=== PATIENT | female | born 1980 | race Caucasian/White ===

== ENCOUNTER 2019-07-12 07:26 | Emergency (ER) | payer SELFPAY ==
[2019-07-12] MEDS ORDERED: NA CHLORIDE 0.9% 1,000 ML ONE (07:39)
[2019-07-12] MEDS ORDERED: ONDANSETRON 4 MG/2 ML VIAL ONE (07:39)
[2019-07-12] MEDS ORDERED: MORPHINE 4 MG/ML SYR ONE (07:39)
[2019-07-12 08:06] LABS: Absolute Lymphocytes (CBC) 1.5 K/uL (0.7-4.9); Basophils % 0.8 % (0-1.3); Hematocrit 36.3 % (36.0-45.0); Lymphocytes % 20.9 % (15.3-44.8); MPV 8.4 fL (7.6-11.3); RBC Red Blood Cell Count 3.97 M/uL (3.86-4.86)
[2019-07-12 08:21] LABS: ALT/SGPT 31 U/L (12-78); AST/SGOT 22 U/L (15-37); Albumin 4.2 g/dL (3.4-5.0); Alkaline Phosphatase 62 U/L (45-117); BUN Blood Urea Nitrogen 25 mg/dL (7-18); Bicarbonate 29 mmol/L (21-32); Bilirubin Direct < 0.1 mg/dL (0-0.2); Bilirubin Total 0.2 mg/dL (0.2-1.0); Glucose Level 97 mg/dL (74-106); Lipase 203 U/L (73-393); Potassium 4.2 mmol/L (3.5-5.1); Protein, Total 7.5 g/dL (6.4-8.2); Sodium Level 138 mmol/L (136-145)
[2019-07-12 09:22] LABS: Urine Blood TRACE (NEG); Urine Glucose NEGATIVE (NEG); Urine Protein NEGATIVE (NEG); Urine Specific Gravity 1.025 (1.005-1.030); Urine pH 5.5 (5.0-7.0)
--- NOTE | 2019-07-12 09:41 | RAD REPORT ---
EXAM DESCRIPTION: CTAbdomen Pelvis W Contrast - 07/12/2019 9:29 am CLINICAL HISTORY: Abdominal pain. ABD PAIN COMPARISON: Abdomen Exam Limited dated 07/12/2019 TECHNIQUE: Biphasic CT imaging of the abdomen and pelvis was performed with 100 ml non-ionic IV cont rast. All CT scans are performed using dose optimization technique as appropriate and may include automated exposure control or mA/KV adjustment according to patient size. FINDINGS: The lung bases are clear. Small fundal diverticulum of the stomach. The liver, spleen, pancreas, adrenal glands and kidneys are within normal limits. Benign cysts presen t inferior cortex right kidney. No bowel obstruction, free air, free fluid or abscess. A significant amount of stool is retained in t he colon. The appendix is normal. Small fat containing supraumbilical ventral hernia. Hernia sac antwon ures 3.5 x 2.9 cm. No bowel involvement. No evidence of significant lymphadenopathy. No suspicious bony findings. Small fat containing right inguinal hernia. IMPRESSION: Prominent fecal retention in the colon. 3.5 x 2.9 cm supraumbilical fat containing ventral hernia. Small fat containing right inguinal hernia.
--- NOTE | 2019-07-12 09:44 | RAD REPORT ---
EXAM DESCRIPTION: US - Abdomen Exam Limited - 07/12/2019 8:21 am CLINICAL HISTORY: ABD PAIN COMPARISON: No comparisons FINDINGS: The gallbladder demonstrates no gallstones. No pericholecystic fluid or gallbladder wall t hickening. The common bile duct is normal measuring 3 mm. The liver demonstrates no findings of intrahepatic biliary dilatation. IMPRESSION: Unremarkable examination.
--- NOTE | 2019-07-12 10:22 | ER ---
Nurse's Notes [facility] Name: Priyanka Bravo Age: 39 yrs Sex: Female : 1980 Arrival Date: 07/12/2019 Time: 07:28 Bed 20 Private MD: None, None Diagnosis: Constipation;Ventral hernia;Upper abdominal pain, unspecified Presentation: 07/12 07:31 Presenting complaint: Patient states: this morning i was up taking the dogs out having tw2 a cigarette, and my stomach just started hurting about 430 this morning, its all over, i took some gas x it didn't help, i did have a bm but that didn't help. Transition of care: patient was received from another setting of care (hospital). Onset of symptoms was July 12, 2019. Risk Assessment: Do you want to hurt yourself or someone else? Patient reports no desire to harm self or others. Initial Sepsis Screen: Does the patient meet any 2 criteria? No. Patient's initial sepsis screen is negative. Does the patient have a suspected source of infection? No. Patient's initial sepsis screen is negative. Care prior to arrival: None. 07:31 Method Of Arrival: Ambulatory tw2 07:31 Acuity: SHAZIA 3 tw2 Triage Assessment: 07:52 General: Appears uncomfortable, Behavior is calm, cooperative, appropriate for age. tw2 Pain: Complains of pain in abdomen. GI: Reports lower abdominal pain, upper abdominal pain, cramping, nausea. 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 - Social history:: Smoking status: Patient uses tobacco products, smokes one pack cigarettes per day. 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 - Ebola Screening: : Patient denies travel to an Ebola-affected area in the 21 days before illness onset. Screenin:57 Abuse screen: Denies threats or abuse. Nutritional screening: No deficits noted. tw2 Tuberculosis screening: No symptoms or risk factors identified. Fall Risk None identified. Assessment: 07:57 General: Appears uncomfortable, Behavior is cooperative, appropriate for age. Pain: tw2 Complains of pain in abdomen. Neuro: Level of Consciousness is awake, alert, obeys commands, Oriented to person, place, time, situation. Cardiovascular: Heart tones S1 S2 Patient's skin is warm and dry. Respiratory: Airway is patent Respiratory effort is even, unlabored, Respiratory pattern is regular, symmetrical, Breath sounds are clear bilaterally. GI: Abdomen is flat, Bowel sounds present X 4 quads. Abd is soft X 4 quads Abdomen is tender to palpation in right upper quadrant and right lower quadrant. : No signs and/or symptoms were reported regarding the genitourinary system. EENT: Derm: No signs and/or symptoms reported regarding the dermatologic system. Musculoskeletal: Range of motion: intact in all extremities. 08:04 Reassessment: US at bedside at this time. tw2 08:50 Reassessment: Patient appears in no apparent distress at this time. No changes from tw2 previously documented assessment. Patient and/or family updated on plan of care and expected duration. Pain level reassessed. Patient is alert, oriented x 3, equal unlabored respirations, skin warm/dry/pink. Patient states feeling better. Patient states symptoms have improved. 09:44 Reassessment: Patient appears in no apparent distress at this time. No changes from tw2 previously documented assessment. Patient and/or family updated on plan of care and expected duration. Pain level reassessed. Patient is alert, oriented x 3, equal unlabored respirations, skin warm/dry/pink. Patient states feeling better. Patient states symptoms have improved. 10:19 Reassessment: provider at bedside with results at this time. tw2 10:36 Reassessment: Patient appears in no apparent distress at this time. No changes from tw2 previously documented assessment. Patient and/or family updated on plan of care and expected duration. Pain level reassessed. Patient is alert, oriented x 3, equal unlabored respirations, skin warm/dry/pink. Patient states feeling better. Patient states symptoms have improved. Vital Signs: 07:53 BP 136 / 88; Pulse 87; Resp 19; Temp 97.6(TE); Pulse Ox 99% on R/A; Weight 74.84 kg tw2 (R); Height 5 ft. 5 in. (165.10 cm); Pain 8/10; 08:50 BP 105 / 66; Pulse 60; Resp 17; Pulse Ox 100% ; Pain 6/10; tw2 09:44 BP 115 / 81; Pulse 57; Resp 17; Pulse Ox 98% on R/A; tw2 07:53 Body Mass Index 27.46 (74.84 kg, 165.10 cm) tw2 ED Course: 07:28 Patient arrived in ED. mr 07:28 None, None is Private Physician. mr 07:29 Marie yAala, [facility]. kb 07:29 Apollo Fregoso MD is Attending Physician. kb 07:31 Bed in low position. Call light in reach. tw2 07:36 Beverly Harman, RN is Primary Nurse. tw2 07:36 Michael Alvarado MD is Attending Physician. kb 07:52 Triage completed. tw2 07:52 Arm band placed on. tw2 07:56 Initial lab(s) drawn, by me, sent to lab. Inserted saline lock: 20 gauge in left dh3 antecubital area, using aseptic technique. Blood collected. 07:56 Missed attempt(s): 22 gauge in right antecubital area. Bleeding controlled, band aid tw2 applied, catheter tip intact. Missed attempt(s): 22 gauge in left antecubital area. Bleeding controlled, band aid applied, catheter tip intact. 08:21 Ultrasound completed. Patient tolerated well. Notified EKG MONITOR TECH/PA . sg3 08:23 US Abdomen Limited In Process Unspecified. EDMS 08:23 Radiology exam delayed due to test not completed at this time. mw3 09:04 Radiology exam delayed due to test not completed at this time. mw3 09:18 Urine collected: clean catch specimen, cloudy. dh3 09:29 CT Abd/Pelvis - IV Contrast Only In Process Unspecified. EDMS 09:30 CT completed. Patient tolerated procedure well. Patient moved back from CT. mw3 10:35 No provider procedures requiring assistance completed. IV discontinued, intact, tw2 bleeding controlled, No redness/swelling at site. Pressure dressing applied. Administered Medications: 08:00 Drug: Zofran 4 mg Route: IVP; Site: left antecubital; tw2 09:00 Follow up: Response: No adverse reaction; Nausea is decreased tw2 08:00 Drug: NS 0.9% 1000 ml Route: IV; Rate: 1000 ml; Site: left antecubital; tw2 09:00 Follow up: Response: No adverse reaction; IV Status: Completed infusion; IV Intake: tw2 1000ml 08:02 Drug: morphine 4 mg Route: IVP; Site: left antecubital; tw2 10:37 Follow up: Response: No adverse reaction; Pain is decreased; RASS: Alert and Calm (0) tw2 Intake: 09:00 IV: 1000ml; Total: 1000ml. tw2 Outcome: 10:22 Discharge ordered by . hilda 10:36 Discharged to home ambulatory. tw2 10:36 Condition: stable 10:36 Discharge instructions given to patient, Instructed on discharge instructions, follow up and referral plans. medication usage, Demonstrated understanding of instructions, follow-up care, medications, Prescriptions given X 2. 10:38 Patient left the ED. tw2 Signatures: Dispatcher [employer] EDMS Marie Ayala, ROSE GILLETTEP-Elo Sommer Tara, RN RN tw2 Krystal Mike3 [place] 3 Angella Paige mw3
--- NOTE | 2019-07-12 10:23 | EDPHYS ---
Physician Documentation [facility] Name: Priyanka Bravo Age: 39 yrs Sex: Female : 1980 Arrival Date: 07/12/2019 Time: 07:28 Bed 20 Private MD: None, None ED Physician Michael Alvarado HPI: 07/12 08:07 This 39 yrs old Female presents to ER via Ambulatory with complaints of kb Abdominal Pain. 08:07 The patient presents with abdominal pain in the upper abdomen. Onset: The kb symptoms/episode began/occurred this morning, at 04:30. The symptoms do not radiate. Associated signs and symptoms: none. The symptoms are described as constant. Modifying factors: The symptoms are alleviated by nothing, the symptoms are aggravated by nothing. Severity of pain: At its worst the pain was moderate in the emergency department the pain is unchanged. The patient has experienced similar episodes in the past, several times, today's symptoms are similar. The patient has not recently seen a physician. 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 - Social history:: Smoking status: Patient uses tobacco products, smokes one pack cigarettes per day. 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 - Ebola Screening: : Patient denies travel to an Ebola-affected area in the 21 days before illness onset. ROS: 08:07 Constitutional: Negative for fever, chills, and weight loss, ENT: Negative for injury, kb pain, and discharge, Neck: Negative for injury, pain, and swelling, Cardiovascular: Negative for chest pain, palpitations, and edema, Respiratory: Negative for shortness of breath, cough, wheezing, and pleuritic chest pain, Back: Negative for injury and pain, : Negative for injury, bleeding, discharge, and swelling, MS/Extremity: Negative for injury and deformity, Skin: Negative for injury, rash, and discoloration, Neuro: Negative for headache, weakness, numbness, tingling, and seizure. 08:07 Abdomen/GI: Positive for abdominal pain, Negative for nausea, vomiting, and diarrhea. Exam: 08:06 Constitutional: This is a well developed, well nourished patient who is awake, alert, kb and in no acute distress. Head/Face: Normocephalic, atraumatic. ENT: Nares patent. No nasal discharge, no septal abnormalities noted. Tympanic membranes are normal and external auditory canals are clear. Oropharynx with no redness, swelling, or masses, exudates, or evidence of obstruction, uvula midline. Mucous membranes moist. Neck: Trachea midline, no thyromegaly or masses palpated, and no cervical lymphadenopathy. Supple, full range of motion without nuchal rigidity, or vertebral point tenderness. No Meningismus. Chest/axilla: Normal chest wall appearance and motion. Nontender with no deformity. No lesions are appreciated. Cardiovascular: Regular rate and rhythm with a normal S1 and S2. No gallops, murmurs, or rubs. Normal PMI, no JVD. No pulse deficits. Respiratory: Lungs have equal breath sounds bilaterally, clear to auscultation and percussion. No rales, rhonchi or wheezes noted. No increased work of breathing, no retractions or nasal flaring. Back: No spinal tenderness. No costovertebral tenderness. Full range of motion. Skin: Warm, dry with normal turgor. Normal color with no rashes, no lesions, and no evidence of cellulitis. MS/ Extremity: Pulses equal, no cyanosis. Neurovascular intact. Full, normal range of motion. Neuro: Awake and alert, GCS 15, oriented to person, place, time, and situation. Cranial nerves II-XII grossly intact. Motor strength 5/5 in all extremities. Sensory grossly intact. Cerebellar exam normal. Normal gait. 08:06 Abdomen/GI: Inspection: abdomen appears normal, Bowel sounds: normal, in all quadrants, Palpation: soft, in all quadrants, moderate abdominal tenderness, in all quadrants, Hernia: noted in the epigastric area, easily reducible . Vital Signs: 07:53 BP 136 / 88; Pulse 87; Resp 19; Temp 97.6(TE); Pulse Ox 99% on R/A; Weight 74.84 kg tw2 (R); Height 5 ft. 5 in. (165.10 cm); Pain 8/10; 08:50 BP 105 / 66; Pulse 60; Resp 17; Pulse Ox 100% ; Pain 6/10; tw2 09:44 BP 115 / 81; Pulse 57; Resp 17; Pulse Ox 98% on R/A; tw2 07:53 Body Mass Index 27.46 (74.84 kg, 165.10 cm) tw2 MDM: 07:29 Patient medically screened. kb 08:06 Data reviewed: vital signs, nurses notes. Data interpreted: Pulse oximetry: on room air kb is 99 %. Interpretation: normal. 10:21 Counseling: I had a detailed discussion with the patient and/or guardian regarding: the kb historical points, exam findings, and any diagnostic results supporting the discharge/admit diagnosis, lab results, radiology results, the need for outpatient follow up, a family practitioner, a general surgeon, a pot annealer, to return to the emergency department if symptoms worsen or persist or if there are any questions or concerns that arise at home. ED course: Educated to follow up with surgery for hernias. Also educated on follow up with GI for possible Hida scan. 07/12 07:35 Order name: Basic Metabolic Panel; Complete Time: 08:22 kb 07/12 07:35 Order name: CBC with Diff; Complete Time: 08:09 kb 07/12 07:35 Order name: Hepatic Function; Complete Time: 08:22 kb 07/12 07:35 Order name: Lipase; Complete Time: 08:22 kb 07/12 09:15 Order name: Urine Dipstick--Ancillary (enter results); Complete Time: 09:24 bd 07/12 09:15 Order name: Urine --Ancillary (enter results); Complete Time: 09:24 bd 07/12 07:35 Order name: IV Saline Lock; Complete Time: 08:01 kb 07/12 07:35 Order name: Labs collected and sent; Complete Time: 08:01 kb 07/12 07:35 Order name: US Abdomen Limited; Complete Time: 10:01 kb 07/12 08:14 Order name: CT Abd/Pelvis - IV Contrast Only; Complete Time: 10:01 kb 07/12 08:48 Order name: Urine Dipstick-Ancillary (obtain specimen); Complete Time: 09:18 bd 07/12 08:48 Order name: Urine Test (obtain specimen); Complete Time: 09:18 bd Administered Medications: 08:00 Drug: Zofran 4 mg Route: IVP; Site: left antecubital; tw2 09:00 Follow up: Response: No adverse reaction; Nausea is decreased tw2 08:00 Drug: NS 0.9% 1000 ml Route: IV; Rate: 1000 ml; Site: left antecubital; tw2 09:00 Follow up: Response: No adverse reaction; IV Status: Completed infusion; IV Intake: tw2 1000ml 08:02 Drug: morphine 4 mg Route: IVP; Site: left antecubital; tw2 10:37 Follow up: Response: No adverse reaction; Pain is decreased; RASS: Alert and Calm (0) tw2 Disposition: 15:28 Co-signature as Attending Physician, Michael Alvarado MD I agree with the assessment and kdr plan of care. Disposition: 07/12/19 10:22 Discharged to Home. Impression: Constipation, Ventral hernia, Upper abdominal pain, unspecified. - Condition is Stable. - Discharge Instructions: Biliary Colic, Adult, Constipation, Adult, [id number], Abdominal Pain, Adult, [id number]. - Prescriptions for Bentyl 20 mg Oral Tablet - take 1 tablet by ORAL route every 6 hours As needed; 20 tablet. Diclofenac Sodium 75 mg Oral Tablet, Delayed Release (E.C.) - take 1 tablet by ORAL route 2 times per day As needed; 30 tablet. - Medication Reconciliation Form, Thank You Letter, Antibiotic Education, Prescription Opioid Use form. - Follow up: Emergency Department; When: As needed; Reason: Worsening of condition. Follow up: Private Physician; When: 2 - 3 days; Reason: Recheck today's complaints, Continuance of care, Re-evaluation by your physician. Signatures: Dispatcher [employer] EDMS Marie Ayala, ROSE CANAS-Karen Smith Kevin, MD MD kdr Beverly Harman RN RN tw2 Corrections: (The following items were deleted from the chart) 10:38 10:22 07/12/2019 10:22 Discharged to Home. Impression: Constipation; Ventral hernia; tw2 Upper abdominal pain, unspecified. Condition is Stable. Forms are Medication Reconciliation Form, Thank You Letter, Antibiotic Education, Prescription Opioid Use. Follow up: Emergency Department; When: As needed; Reason: Worsening of condition. Follow up: Private Physician; When: 2 - 3 days; Reason: Recheck today's complaints, Continuance of care, Re-evaluation by your physician. kb
[2019-07-12 11:05] VITALS: TEMP 97.6
[2019-07-12 11:07] VITALS: BP 115/81; O2SAT 98
== END 2019-07-12 10:38 | disposition home or self-care (01) ==
LOC: ER 07:26
DX: K59.00 Constipation, unspecified (principal); K43.9 Ventral hernia without obstruction or gangrene; F17.210 Nicotine dependence, cigarettes, uncomplicated; E03.9 Hypothyroidism, unspecified; F32.9 Major depressive disorder, single episode, unspecified; F43.10 Post-traumatic stress disorder, unspecified; Z88.2 Allergy status to sulfonamides
CPT/HCPCS: 36415; 74177; 76705; 80048; 80076; 81003; 81025; 83690; 85025; 96361; 96374; 96375; 99284; J2405; J7030; Q9967

== ENCOUNTER 2019-10-26 14:14 | Emergency (ER) | payer SELFPAY ==
[2019-10-26] MEDS ORDERED: FAMOTIDINE 20 MG/2 ML VIAL IV ONE (14:41)
[2019-10-26] MEDS ORDERED: ONDANSETRON 4 MG/2 ML VIAL ONE (14:41)
[2019-10-26] MEDS ORDERED: NA CHLORIDE 0.9% 1,000 ML ONE (14:41)
[2019-10-26] MEDS ORDERED: MORPHINE 4 MG/ML SYR ONE (14:41)
--- NOTE | 2019-10-26 14:47 | RAD REPORT ---
EXAM DESCRIPTION: RAD - Chest Single View - 10/26/2019 2:40 pm CLINICAL HISTORY: ABDOMINAL DISTENTION COMPARISON: None TECHNIQUE: AP portable chest image was obtained 10/26/2019 2:40 pm . FINDINGS: Lungs are clear. Heart and vasculature are normal. No measurable pleural effusion and no p neumothorax. No acute bony abnormality seen. No acute aortic findings suspected. IMPRESSION: No acute cardiopulmonary process.
[2019-10-26 15:12] LABS: Absolute Lymphocytes (CBC) 1.6 K/uL (0.7-4.9); Hematocrit 36.6 % (36.0-45.0); Lymphocytes % 20.6 % (15.3-44.8); MPV 8.3 fL (7.6-11.3); RBC Red Blood Cell Count 4.07 M/uL (3.86-4.86)
[2019-10-26 15:40] LABS: ALT/SGPT 21 U/L (12-78); AST/SGOT 19 U/L (15-37); Albumin 3.9 g/dL (3.4-5.0); Alkaline Phosphatase 55 U/L (45-117); BUN Blood Urea Nitrogen 12 mg/dL (7-18); Bicarbonate 28 mmol/L (21-32); Bilirubin Direct < 0.1 mg/dL (0-0.2); Bilirubin Total 0.2 mg/dL (0.2-1.0); Glucose Level 94 mg/dL (74-106); Lipase 131 U/L (73-393); Magnesium 2.1 mg/dL (1.8-2.4); NT PRO-BNP 92 pg/mL (<125); Potassium 4.1 mmol/L (3.5-5.1); Protein, Total 7.2 g/dL (6.4-8.2); Sodium Level 143 mmol/L (136-145); Troponin (Emerg Dept Use Only) < 0.02 ng/mL (0.0-0.045)
[2019-10-26 15:47] LABS: Protime INR 0.93
[2019-10-26 16:12] LABS: Urine Blood 2+ (NEG); Urine Glucose NEGATIVE (NEG); Urine Protein NEGATIVE (NEG); Urine Specific Gravity 1.025 (1.005-1.030)
[2019-10-26 16:12] LABS: Urine Specific Gravity 1.025 (1.005-1.030)
--- NOTE | 2019-10-26 16:47 | EKG ---
Test Date: 2019-10-26 Test Time: 14:36:09 Instructor Military Science: SIXTO MEASUREMENT RESULTS: Intervals: Rate: 64 IN: 136 QRSD: 92 QT: 408 QTc: 420 [place]: P: 56 IN: 136 QRS: 93 T: 50 INTERPRETIVE STATEMENTS: Normal sinus rhythm Rightward axis Borderline ECG No previous ECG available for comparison Electronically Signed On 10-26-19 16:47:06 CDT by Richard Hopkins
--- NOTE | 2019-10-26 17:16 | RAD REPORT ---
EXAM DESCRIPTION: CT - Abdomen Pelvis W Contrast - 10/26/2019 4:59 pm CLINICAL HISTORY: ABD PAIN COMPARISON: Abdomen Pelvis W Contrast dated 07/12/2019 TECHNIQUE: Biphasic, helical CT imaging of the abdomen and pelvis was performed following 100 ml non -ionic IV contrast. Oral contrast was administered. . All CT scans are performed using dose optimization technique as appropriate and may include automated exposure control or mA/KV adjustment according to patient size. FINDINGS: Minimal bilateral pleural effusions. There is minimal interstitial and patchy alveolar opa cities in each posterior gutter. The liver, spleen, and pancreas show no suspicious findings. Gallbladder and biliary tree are also wi thout suspicious finding. Symmetric renal function is seen with no hydronephrosis or suspicious renal mass. No pyelonephritis o r acute parenchymal process. No bladder abnormalities. No adrenal abnormalities. Uterus and ovaries s how no suspicious findings. Little or no hiatal hernia is evident on this examination. Stomach shows no wall thickening, mass or other acute finding. No dilated large or small bowel loops seen. Appendix is normal. Physiologic quantity of free fluid seen in the cul de sac. No free air or pneumatosis. No mass or bulky lymphadenopathy. Midline ventral hernia in the upper abdomen is approximately 8 cm i n diameter with a 3 centimeter neck. There is no bowel involvement. The herniated fat shows a trace a mount of congestion or edema. Pattern is not substantially different from June 2019. Patient also has a midline supraumbilical hernia 5 cm in diameter with a 2.5 centimeter neck. This contains only fat. A fat only 2.5 centimeter umbilical hernia is present. The supraumbilical hernia has a trace jaclyn unt of fluid present. No suspicious bony findings. IMPRESSION: The patient has 3 midline ventral hernias. The superior abdominal hernia and umbilical h ernia are not substantially different from June 2019. The supraumbilical hernia contains a trace amount of fluid. There is no bowel involvement of any hernia. No significant congestion or edema within the herniated fat. Trace bilateral pleural effusions with minimal amount of bilateral posterior lung base interstitial e janell and minimal atelectasis.
--- NOTE | 2019-10-26 17:34 | ER ---
Nurse's Notes [facility] Name: Priyanka Bravo Age: 39 yrs Sex: Female : 1980 Arrival Date: 10/26/2019 Time: 14:15 Bed 28 Private MD: Diagnosis: Ventral hernia;Abdominal tenderness;Vomiting Presentation: 10/25 14:18 Chief complaint: Patient states: "I was here on the for the same thing, I have a aa5 hernia but the pain is too bad today". pt c/o abd pain. Coronavirus screen: Proceed with normal triage. Ebola Screen: Patient negative for fever greater than or equal to 101.5 degrees Fahrenheit, and additional compatible Ebola Virus Disease symptoms. Initial Sepsis Screen: Does the patient meet any 2 criteria? No. Patient's initial sepsis screen is negative. Does the patient have a suspected source of infection? No. Patient's initial sepsis screen is negative. Risk Assessment: Do you want to hurt yourself or someone else? Patient reports no desire to harm self or others. Onset of symptoms was October 2019. 14:18 Method Of Arrival: Ambulatory aa5 14:18 Acuity: SHAZIA 3 aa5 Triage Assessment: 14:30 General: Appears in no apparent distress. uncomfortable, Behavior is calm, cooperative, vc appropriate for age. Pain: Complains of pain in left upper quadrant and right upper quadrant Pain does not radiate. Pain currently is 7 out of 10 on a pain scale. at worst was 11 out of 10 on a pain scale. GI: Abdomen is distended, obese, Reports upper abdominal pain, nausea, vomiting. 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 - Social history:: Smoking status: Patient reports the use of cigarette tobacco products, smokes one-half pack cigarettes per day. - Family history:: not pertinent. Screenin:30 Abuse screen: Denies threats or abuse. Nutritional screening: No deficits noted. vc Tuberculosis screening: No symptoms or risk factors identified. Fall Risk None identified. Assessment: 14:30 Pain: Complains of pain in left upper quadrant and right upper quadrant. GI: Bowel vc sounds present X 4 quads. Abdomen is tender to palpation Mass noted in right upper quadrant and left upper quadrant. 14:30 General: Appears in no apparent distress. uncomfortable, Behavior is calm, cooperative, vc appropriate for age. 14:30 Neuro: Level of Consciousness is awake, alert, obeys commands, Oriented to person, vc place, time, situation, Appropriate for age. Cardiovascular: Capillary refill < 3 seconds Patient's skin is warm and dry. Respiratory: Airway is patent Respiratory effort is even, unlabored, Respiratory pattern is regular, symmetrical. GI: Abdomen is distended, obese. 15:18 Reassessment: finished contrast, CT notified. vc 15:30 Reassessment: Patient appears in no apparent distress at this time. Patient and/or vc family updated on plan of care and expected duration. Pain level reassessed. 16:30 Reassessment: Patient appears in no apparent distress at this time. Patient and/or vc family updated on plan of care and expected duration. Pain level reassessed. Patient is alert, oriented x 3, equal unlabored respirations, skin warm/dry/pink. 17:30 Reassessment: Patient appears in no apparent distress at this time. Patient and/or vc family updated on plan of care and expected duration. Pain level reassessed. Patient is alert, oriented x 3, equal unlabored respirations, skin warm/dry/pink. Patient states feeling better. Patient states symptoms have improved. Vital Signs: 14:18 BP 157 / 95; Pulse 81; Resp 18 S; Temp 98.6(O); Pulse Ox 100% on R/A; Weight 79.38 kg aa5 (R); Height 5 ft. 6 in. (167.64 cm) (R); Pain 7/10; 15:30 BP 115 / 78; Pulse 69; Resp 14; Pulse Ox 99% on R/A; vc 16:30 BP 103 / 68; Pulse 56; Resp 12; Pulse Ox 99% on R/A; vc 17:15 BP 132 / 87; Pulse 60; Pulse Ox 100% on R/A; vc 14:18 Body Mass Index 28.25 (79.38 kg, 167.64 cm) aa5 ED Course: 14:15 Patient arrived in ED. am2 14:20 Triage completed. aa5 14:21 Arm band placed on. aa5 14:23 Apollo Fregoso MD is Attending Physician. kely 14:27 Kelly Langley, RN is Primary Nurse. vc 14:30 Patient has correct armband on for positive identification. Bed in low position. Call vc light in reach. Pulse ox on. NIBP on. 14:35 Urine collected: clean catch specimen, clear, sonia colored. jp3 14:41 XRAY Chest (1 view) In Process Unspecified. EDMS 14:45 Missed attempt(s): 20 gauge in left antecubital area. Bleeding controlled, band aid vc applied, catheter tip intact. 14:55 Missed attempt(s): 24 gauge in left upper arm. Bleeding controlled, band aid applied, vc catheter tip intact. 15:00 Missed attempt(s): 20 gauge in right antecubital area. Bleeding controlled, band aid jp3 applied, catheter tip intact. 15:06 Initial lab(s) drawn, by me, sent to lab. Inserted saline lock: 20 gauge in left upper jp3 arm, using aseptic technique. Blood collected. 16:59 CT Abd/Pelvis - PO and IV Contrast In Process Unspecified. EDMS 17:34 Sukumar Anderson MD is Referral Physician. kely 17:51 No provider procedures requiring assistance completed. IV discontinued, intact, vc bleeding controlled, No redness/swelling at site. Pressure dressing applied. Administered Medications: 15:10 Drug: Pepcid 20 mg Route: IVP; Site: left upper arm; vc 15:56 Follow up: Response: No adverse reaction vc 15:12 Drug: Zofran (Ondansetron) 4 mg Route: IVP; Site: left upper arm; vc 15:56 Follow up: Response: No adverse reaction; Nausea is decreased vc 15:15 Drug: NS 0.9% 1000 ml Route: IV; Rate: 1 bolus; Site: left upper arm; vc 16:15 Follow up: IV Status: Completed infusion; IV Intake: 1000ml vc 15:15 Drug: morphine 4 mg Route: IVP; Site: left upper arm; vc 15:56 Follow up: Response: No adverse reaction; Pain is decreased vc Point of Care Testing: Urine : 14:35 hCG Reading: Negative; Control Reading: Positive; jp3 Intake: 16:15 IV: 1000ml; Total: 1000ml. vc Outcome: 17:34 Discharge ordered by . kely 17:52 Discharged to home ambulatory. vc 17:52 Condition: improved 17:52 Discharge instructions given to patient, Instructed on discharge instructions, follow up and referral plans. medication usage, Demonstrated understanding of instructions, follow-up care, medications, Prescriptions given X 3. 17:53 Patient left the ED. vc Signatures: Dispatcher [employer] EDApollo Gonzales MD MD cha Calderon, Audri, RN RN [id number] Harriet Aly Jacob jp3 Kelly Langley RN RN
--- NOTE | 2019-10-26 17:34 | EDPHYS ---
Physician Documentation [facility] Name: Priyanka Bravo Age: 39 yrs Sex: Female : 1980 Arrival Date: 10/26/2019 Time: 14:15 Bed 28 Private MD: AMY Physician Apollo Fregoso HPI: 10/25 15:20 This 39 yrs old Female presents to ER via Ambulatory with complaints of kely Abdominal Pain. 15:20 The patient presents with abdominal pain in the upper abdomen, abdominal distention in kely the upper abdomen, in the lower abdomen. Onset: The symptoms/episode began/occurred 2 day(s) ago. The patient presents to the emergency department with nausea, vomiting, 1 times since the onset of symptoms. Onset: The symptoms/episode began/occurred this morning. Possible causes: unknown. The symptoms are aggravated by nothing. The symptoms are alleviated by nothing. Associated signs and symptoms: Pertinent positives: abdominal pain, nausea, vomiting. Associated signs and symptoms: none. 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 - Social history:: Smoking status: Patient reports the use of cigarette tobacco products, smokes one-half pack cigarettes per day. - Family history:: not pertinent. ROS: 15:20 Constitutional: Negative for fever, chills, and weight loss, Eyes: Negative for injury, kely pain, redness, and discharge, ENT: Negative for injury, pain, and discharge, Neck: Negative for injury, pain, and swelling, Cardiovascular: Negative for chest pain, palpitations, and edema, Respiratory: Negative for shortness of breath, cough, wheezing, and pleuritic chest pain, Back: Negative for injury and pain, : Negative for injury, bleeding, discharge, and swelling, MS/Extremity: Negative for injury and deformity, Skin: Negative for injury, rash, and discoloration, Neuro: Negative for headache, weakness, numbness, tingling, and seizure, Psych: Negative for depression, anxiety, suicide ideation, homicidal ideation, and hallucinations, Allergy/Immunology: Negative for hives, rash, and allergies, Endocrine: Negative for neck swelling, polydipsia, polyuria, polyphagia, and marked weight changes, Hematologic/Lymphatic: Negative for swollen nodes, abnormal bleeding, and unusual bruising. 15:20 Abdomen/GI: Positive for abdominal pain, nausea and vomiting, of the right upper quadrant, left upper quadrant, right lower quadrant and left lower quadrant. Exam: 15:20 Constitutional: This is a well developed, well nourished patient who is awake, alert, kely and in no acute distress. Head/Face: Normocephalic, atraumatic. Eyes: Pupils equal round and reactive to light, extra-ocular motions intact. Lids and lashes normal. Conjunctiva and sclera are non-icteric and not injected. Cornea within normal limits. Periorbital areas with no swelling, redness, or edema. ENT: Nares patent. No nasal discharge, no septal abnormalities noted. Tympanic membranes are normal and external auditory canals are clear. Oropharynx with no redness, swelling, or masses, exudates, or evidence of obstruction, uvula midline. Mucous membranes moist. Neck: Trachea midline, no thyromegaly or masses palpated, and no cervical lymphadenopathy. Supple, full range of motion without nuchal rigidity, or vertebral point tenderness. No Meningismus. Chest/axilla: Normal chest wall appearance and motion. Nontender with no deformity. No lesions are appreciated. Cardiovascular: Regular rate and rhythm with a normal S1 and S2. No gallops, murmurs, or rubs. Normal PMI, no JVD. No pulse deficits. Respiratory: Lungs have equal breath sounds bilaterally, clear to auscultation and percussion. No rales, rhonchi or wheezes noted. No increased work of breathing, no retractions or nasal flaring. Abdomen/GI: Soft, non-tender, with normal bowel sounds. No distension or tympany. No guarding or rebound. No evidence of tenderness throughout. Back: No spinal tenderness. No costovertebral tenderness. Full range of motion. Skin: Warm, dry with normal turgor. Normal color with no rashes, no lesions, and no evidence of cellulitis. MS/ Extremity: Pulses equal, no cyanosis. Neurovascular intact. Full, normal range of motion. Neuro: Awake and alert, GCS 15, oriented to person, place, time, and situation. Cranial nerves II-XII grossly intact. Motor strength 5/5 in all extremities. Sensory grossly intact. Cerebellar exam normal. Normal gait. Vital Signs: 14:18 BP 157 / 95; Pulse 81; Resp 18 S; Temp 98.6(O); Pulse Ox 100% on R/A; Weight 79.38 kg aa5 (R); Height 5 ft. 6 in. (167.64 cm) (R); Pain 7/10; 15:30 BP 115 / 78; Pulse 69; Resp 14; Pulse Ox 99% on R/A; vc 16:30 BP 103 / 68; Pulse 56; Resp 12; Pulse Ox 99% on R/A; vc 17:15 BP 132 / 87; Pulse 60; Pulse Ox 100% on R/A; vc 14:18 Body Mass Index 28.25 (79.38 kg, 167.64 cm) aa5 MDM: 14:23 Patient medically screened. [facility] 15:20 Data reviewed: vital signs, nurses notes, lab test result(s), EKG, radiologic studies, [facility] CT scan, plain films. 10/25 14:27 Order name: Basic Metabolic Panel; Complete Time: 16:02 kely 10/25 14:27 Order name: CBC with Diff; Complete Time: 16:02 [facility] 10/25 14:27 Order name: LFT's; Complete Time: 16:02 kely 10/25 14:27 Order name: Magnesium; Complete Time: 16:02 kely 10/25 14:27 Order name: NT PRO-BNP; Complete Time: 16:02 [facility] 10/25 14:27 Order name: PT-INR; Complete Time: 16:02 [facility] 10/25 14:27 Order name: Troponin (emerg Dept Use Only); Complete Time: 16:02 kely 10/25 14:27 Order name: XRAY Chest (1 view); Complete Time: 16:02 kely 10/25 14:27 Order name: Lipase; Complete Time: 16:02 [facility] 10/25 14:27 Order name: CT Abd/Pelvis - PO and IV Contrast; Complete Time: 17:30 kely 10/25 15:01 Order name: Urine Dipstick--Ancillary (enter results); Complete Time: 16:30 bd 10/25 15:04 Order name: Urine --Ancillary (enter results); Complete Time: 16:31 bd 10/25 14:27 Order name: EKG; Complete Time: 14:28 [facility] 10/25 14:27 Order name: Cardiac monitoring; Complete Time: 15:56 [facility] 10/25 14:27 Order name: EKG - Nurse/Tech; Complete Time: 15:08 [facility] 10/25 14:27 Order name: IV Saline Lock; Complete Time: 15:08 [facility] 10/25 14:27 Order name: Labs collected and sent; Complete Time: 15:08 [facility] 10/25 14:27 Order name: O2 Per Protocol; Complete Time: 15:08 [facility] 10/25 14:27 Order name: O2 Sat Monitoring; Complete Time: 15:08 [facility] 10/25 14:27 Order name: Urine Dipstick-Ancillary (obtain specimen); Complete Time: 14:49 [facility] 10/25 14:27 Order name: Urine Test (obtain specimen); Complete Time: 14:49 [facility] Administered Medications: 15:10 Drug: Pepcid 20 mg Route: IVP; Site: left upper arm; vc 15:56 Follow up: Response: No adverse reaction vc 15:12 Drug: Zofran (Ondansetron) 4 mg Route: IVP; Site: left upper arm; vc 15:56 Follow up: Response: No adverse reaction; Nausea is decreased vc 15:15 Drug: NS 0.9% 1000 ml Route: IV; Rate: 1 bolus; Site: left upper arm; vc 16:15 Follow up: IV Status: Completed infusion; IV Intake: 1000ml vc 15:15 Drug: morphine 4 mg Route: IVP; Site: left upper arm; vc 15:56 Follow up: Response: No adverse reaction; Pain is decreased vc Point of Care Testing: Urine : 14:35 hCG Reading: Negative; Control Reading: Positive; jp3 Disposition: 10/26/19 17:34 Discharged to Home. Impression: Ventral hernia, Abdominal tenderness, Vomiting. - Condition is Stable. - Discharge Instructions: Abdominal Pain, Adult, Hernia, Adult, Nausea and Vomiting, Adult, Nausea and Vomiting, Adult, [id number], Abdominal Pain, Adult, [id number], Hernia, Adult, [id number]. - Prescriptions for Bentyl 20 mg Oral Tablet - take 1 tablet by ORAL route every 6 hours As needed; 20 tablet. Pepcid 20 mg Oral Tablet - take 1 tablet by ORAL route every 12 hours for 10 days; 20 tablet. Zofran 4 mg Oral Tablet - take 1 tablet by ORAL route every 12 hours As needed; 20 tablet. - Medication Reconciliation Form, Thank You Letter, Antibiotic Education, Prescription Opioid Use form. - Follow up: Private Physician; When: 2 - 3 days; Reason: Recheck today's complaints, Continuance of care, Re-evaluation by your physician. Follow up: Sukumar Anderson; When: 2 - 3 days; Reason: Recheck today's complaints, Re-evaluation by your physician. - Problem is new. - Symptoms have improved. Signatures: Dispatcher [employer] EDApollo Gonzales MD MD cha Calderon, Audri, RN RN aa5 Kelly Langley RN RN vc Corrections: (The following items were deleted from the chart) 17:53 17:34 10/26/2019 17:34 Discharged to Home. Impression: Ventral hernia; Abdominal vc tenderness; Vomiting. Condition is Stable. Discharge Instructions: Abdominal Pain, Adult, Nausea and Vomiting, Adult, Nausea and Vomiting, Adult, [id number]-[id number], Abdominal Pain, Adult, [id number]. Prescriptions for Bentyl 20 mg Oral Tablet - take 1 tablet by ORAL route every 6 hours As needed; 20 tablet, Pepcid 20 mg Oral Tablet - take 1 tablet by ORAL route every 12 hours for 10 days; 20 tablet, Zofran 4 mg Oral Tablet - take 1 tablet by ORAL route every 12 hours As needed; 20 tablet. and Forms are Medication Reconciliation Form, Thank You Letter, Antibiotic Education, Prescription Opioid Use. Follow up: Private Physician; When: 2 - 3 days; Reason: Recheck today's complaints, Continuance of care, Re-evaluation by your physician. Follow up: Sukumar Anderson; When: 2 - 3 days; Reason: Recheck today's complaints, Re-evaluation by your physician. Problem is new. Symptoms have improved. kely
[2019-10-26 18:18] VITALS: TEMP 98.6
[2019-10-26 18:21] VITALS: BP 132/87; O2SAT 100
== END 2019-10-26 17:53 | disposition home or self-care (01) ==
LOC: ER 14:14
DX: K43.9 Ventral hernia without obstruction or gangrene (principal); R11.10 Vomiting, unspecified; F17.210 Nicotine dependence, cigarettes, uncomplicated; Z88.2 Allergy status to sulfonamides
CPT/HCPCS: 36415; 71045; 74177; 80048; 80076; 81003; 81025; 83690; 83735; 83880; 84484; 85025; 85610; 93005; 96361; 96374; 96375; 99284; J2405; J7030; Q9967

== ENCOUNTER 2019-12-25 12:15 | Inpatient (IN) | payer SELFPAY ==
[2019-12-25 13:47] VITALS: BMI 29.0
[2019-12-25] MEDS ORDERED: Ringers Lactate 1,000 ML IV ONE ×2 (14:31→15:55)
[2019-12-25] MEDS ORDERED: CEFOXITIN/SWI 1gm 1 GM/10 ML SYR ONE (15:04)
--- NOTE | 2019-12-25 15:12 | P.HP ---
Date of Service: 12/25/19 PC: This patient presents to the emergency room with severe abdominal pain for diagnosis and treatment. HPC: Patient's niece last night, experienced excruciating pain shortly thereafter. Has 2 hernias that have been causing numerous admissions and ER visits in the past. Presents now with a similar complaint. PMH: Depression PSHx: Previous laparoscopic cholecystectomy SOC: Allergic to sulfa SYS REVIEW: No cough, wheeze, shortness of breath. No chest pain or palpitations. No urinary complaints. Very active lady, has a lot of farm animals. O/E awake alert stable HEENT: Within normal limits Chest: Chest movement equal bilaterally ABD: Has a large incarcerated ventral hernia about 4 fingers breath was of the xiphoid measures about 7 x 4 cm in size. Tender to the touch. Another down by the umbilicus LOCO: Intact DATA: CT scan demonstrates the hernias IMPRESSION: incarcerated ventral and umbilical hernias. PLAN: I will take her the operating room for laparoscopic reduction repair of his incarcerated hernias. The risks of this procedure has been discussed. The possibility of bleeding, infection, injury to bowel and blood vessels has been described. The possible need for an open and/or further surgeries and procedures was discussed. Recurrence, chronic pain, and scar formation as well as cosmetic abdominal wall deformity were explained. She understands and wants to proceed.
--- NOTE | 2019-12-25 16:56 | P.OP ---
Preoperative diagnosis: Incarcerated ventral and umbilical hernia Postoperative diagnosis: The same Primary procedure: Laparoscopic reduction and repair of umbilical and ventral hernia Anesthesia: General Estimated blood loss: Less than 10 cc Specimen: Hernial contents Operative Technique: The patient brought to the operating room and placed supine on the table. After the induction of adequate general endotracheal anesthesia, a Naylor catheter was inserted under sterile conditions. The abdomen was then prepped with a chlorhexidine solution, she is draped in usual aseptic manner. A left upper quadrant skin incision was made. This brought down through the skin and subcutaneous tissue. The Visiport was now used to enter the peritoneal cavity and created pneumoperitoneum to approximately 12 mm of mercury. Under direct vision a 5 mm trocar was placed in the left lower quadrant. We were now able to visualize the peritoneal cavity. We could see that hernia actually had strains omentum going through it that was incarcerated. Applying direct pressure and gentle traction we were able to gradually reduce this back into the peritoneal cavity. Attention was turned towards the ventral hernia. We could transilluminate with our scope during the procedure. We could see that it began about 5-6 cm above our umbilical hernia. The umbilical ligament came up along this area. The SOUZA was grasped. The peritoneum was dissected off this anterior abdominal wall parallel on both sides. The area of fatty incarceration was now grasped with a grasper. Applying gentle traction were able process back into the peritoneal cavity. This all was all resected and sent as specimen. We were now left with a defect in the anterior abdominal wall measuring approximately 2.5 x 2.5 cm. A piece of 25 x 20 cm mesh was introduced into the peritoneal cavity. The mesh was maneuvered into position so as to allow for adequate coverage and closure of these hernial defects. The inflating tube was now grasped using the Endo Close and brought to the exterior. On pressurized in the balloon we were able to down fully elevated up to the anterior abdominal wall. The Pro Tacker was now used to fix the mesh to the anterior abdominal wall taking surgically attention around all hernial defects to make sure we had good coverage to prepped prevent the mesh from [place] trapping into the hernial defect. Good coverage was obtained. We now inspected the rest of the abdomen. 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 The abdomen is now inspected to ensure adequate hemostasis. The anterior abdominal wall was Pio blocked with 0.25% Marcaine. The 10 mm trocar site in the left upper portion of the abdomen was approximated using the Endo Close an absorbable suture. The pneumoperitoneum was now collapsed, the trocars removed, and ramona applied to the skin. At the end of the procedure she was in a stable condition when sent to the recovery room. Needle sponge instrument count were correct. No drains were placed. Complications: None Transferred to: Recovery Room Condition: Good
[2019-12-25] MEDS: HYDROMORPHONE HCL 1 MG/ML INJ ONE ×3 (17:32→17:46)
[2019-12-25] MEDS: Ringers Lactate 1,000 ML IV SCH ×2 (17:35→23:21)
[2019-12-25] MEDS ORDERED: HYDROMORPHONE HCL 1 MG/ML INJ ONE (17:46)
[2019-12-25] MEDS: HYDROCODONE/APAP 7.5/325 MG TAB PO PRN (19:58)
[2019-12-25] MEDS: ONDANSETRON 4 MG/2 ML VIAL IV PRN (19:58)
[2019-12-25] MEDS: MORPHINE 4 MG/ML SYR IV PRN (23:25)
[2019-12-26] MEDS: Ringers Lactate 1,000 ML IV SCH ×4 (03:35→23:35)
[2019-12-26] MEDS: HYDROCODONE/APAP 7.5/325 MG TAB PO PRN ×3 (04:09→20:59)
[2019-12-26 06:27] LABS: Absolute Lymphocytes (CBC) 0.9 K/uL (0.7-4.9); Basophils % 0.2 % (0-1.3); Hematocrit 35.8 % (36.0-45.0); Lymphocytes % 6.7 % (15.3-44.8); RBC Red Blood Cell Count 3.99 M/uL (3.86-4.86)
[2019-12-26] MEDS: MORPHINE 4 MG/ML SYR IV PRN ×3 (06:42→16:39)
[2019-12-26] MEDS: ONDANSETRON 4 MG/2 ML VIAL IV PRN ×2 (06:42→12:17)
[2019-12-26 07:04] LABS: Albumin 3.3 g/dL (3.4-5.0); Bilirubin Direct 0.1 mg/dL (0-0.2); Bilirubin Total 0.4 mg/dL (0.2-1.0); Potassium 4.1 mmol/L (3.5-5.1); Protein, Total 6.6 g/dL (6.4-8.2)
[2019-12-26 07:28] LABS: Blood Morphology Comment NOT SEEN (NOT SEEN); Platelet Estimate ADEQ; Urine White Blood Cell Casts OK
[2019-12-26] MEDS ORDERED: DIAZEPAM 5 MG TABLET PO ONE (20:50)
[2019-12-26] MEDS: ONDANSETRON 4 MG (ODT) TAB PO PRN (21:26)
[2019-12-27] MEDS: HYDROCODONE/APAP 7.5/325 MG TAB PO PRN ×3 (03:24→13:33)
[2019-12-27] MEDS: ONDANSETRON 4 MG (ODT) TAB PO PRN ×3 (03:24→14:28)
[2019-12-27 08:34] VITALS: O2SAT 93
--- NOTE | 2019-12-27 15:27 | P.PN ---
Date of Service: 12/27/19 S: Patient doing well today, has been up ambulating, tolerating a diet. No longer requires IV medication. Her pain is controlled on orals. O: Vital signs remain stable, incisions are clean A: Surgically stable P: Discharge home. Patient has been advised that diet, wound care, ambulating, incentive spirometry. She will contact my office and set up an appointment for next or Saturday. Should she have any questions or problems she will return to the emergency room.
[2019-12-27 16:52] VITALS: BP 125/76; TEMP 97.1
== END 2019-12-27 17:46 | disposition home or self-care (01) | DRG 355 ==
LOC: OBSVTOIN 12:15 → ERHOLD 12:15 → 2ND 13:24
PROVIDERS: ADMIT Surgery; ATTEND Surgery
PROC: 0WQF4ZZ Repair Abdominal Wall, Percutaneous Endoscopic Approach (ICD-10-PCS; principal; 2019-12-25 16:00)
DX: K42.0 Umbilical hernia with obstruction, without gangrene (principal); Z90.49 Acquired absence of other specified parts of digestive tract; Z88.1 Allergy status to other antibiotic agents; Z20.828 Contact with and (suspected) exposure to other viral communicable diseases
CPT/HCPCS: 36415; 80048; 80076; 83690; 85025; 88302; J1170; J2405; J7120; U0002

== ENCOUNTER → 2019-12-25 | Emergency (ER) | payer SELFPAY ==
[~2019-12-25] MED LIST: ACETAMINOPHEN 500 MG TAB PO PRN; CEFOXITIN SODIUM 1 GM/VIAL IVPB SCH; CEFOXITIN/SWI 1gm 1 GM/10 ML SYR IVP SCH; D5 0.45 NS 1,000 ML IV SCH; FENTANYL CITR 100 MCG/2 ML ONE; GLYCOPYRROLATE 0.2 MG/ML SYR ONE; KETOROLAC 30 MG/ML INJ ONE; LIDOCAINE 2% MPF 5 ML VIAL ONE; MIDAZOLAM HCL 2 MG/2 ML INJ ONE; MORPHINE 4 MG/ML SYR ONE; NEOSTIGMINE 1 MG/ML -5 ML ONE; ONDANSETRON 4 MG/2 ML VIAL IV PRN; ONDANSETRON 4 MG/2 ML VIAL ONE; ROCURONIUM 50 MG/5 ML VIAL IV ONE; dexAMETHasone 10 MG/ML VIAL ONE; propofoL 200 MG/20 ML VIAL IV ONE
[2019-12-25 08:20] LABS: Absolute Lymphocytes (CBC) 2.2 K/uL (0.7-4.9); Basophils % 1.3 % (0-1.3); Hematocrit 38.3 % (36.0-45.0); Lymphocytes % 26.2 % (15.3-44.8); MPV 8.8 fL (7.6-11.3); RBC Red Blood Cell Count 4.32 M/uL (3.86-4.86)
[2019-12-25 09:15] LABS: Albumin 4.4 g/dL (3.4-5.0); Bilirubin Direct 0.2 mg/dL (0-0.2); Bilirubin Total 0.8 mg/dL (0.2-1.0); Potassium 3.8 mmol/L (3.5-5.1); Protein, Total 8.3 g/dL (6.4-8.2)
[2019-12-25 09:21] LABS: Urine Blood NEGATIVE (NEG); Urine Glucose NEGATIVE (NEG); Urine Protein NEGATIVE (NEG); Urine pH 5.5 (5.0-7.0)
--- NOTE | 2019-12-25 09:38 | RAD REPORT ---
EXAM DESCRIPTION: CTAbdomen Pelvis W Contrast - 12/25/2019 9:17 am CLINICAL HISTORY: Abdominal pain. ABD PAIN COMPARISON: Abdomen Pelvis W Contrast dated 10/26/2019; Abdomen Pelvis W Contrast dated 07/12/2019 TECHNIQUE: Biphasic CT imaging of the abdomen and pelvis was performed with 100 ml non-ionic IV cont rast. All CT scans are performed using dose optimization technique as appropriate and may include automated exposure control or mA/KV adjustment according to patient size. FINDINGS: The lung bases are clear. Mild diffuse fatty liver is seen. No focal liver lesion or biliary dilatation evident. The spleen, pa ncreas, adrenal glands and kidneys are within normal limits. 10 mm cyst is present inferior right kid haley. No bowel obstruction, free air, free fluid or abscess. Multiple fat containing ventral hernias are se en. No significant changes present since comparative study in relation to these hernias. The appendix is normal. No evidence of significant lymphadenopathy. No suspicious bony findings. IMPRESSION: No acute intra-abdominal or pelvic finding. Multiple ventral hernias containing fat are stable since comparative study.
[2019-12-25 09:47] LABS: Urine Bacteria >50 /HPF (<20); Urine Culture Reflex Order NOT NEEDED; Urine RBC <5 /HPF (NONE SEEN)
--- NOTE | 2019-12-25 12:10 | ER ---
Nurse's Notes [facility] Name: Priyanka Bravo Age: 39 yrs Sex: Female : 1980 Arrival Date: 12/25/2019 Time: 07:49 Bed 5 Private MD: Diagnosis: Intractable Abdominal Pain;Ventral Abdominal Hernia;UTI Presentation: 12/24 07:52 Chief complaint: Abdominal pain and N/V since last night. Hx of hernia, reports pain hb and started after sneezing several times in a row yesterday. Coronavirus screen: Proceed with normal triage. Ebola Screen: No symptoms or risks identified at this time. Initial Sepsis Screen: Does the patient meet any 2 criteria? HR > 90 bpm. Does the patient have a suspected source of infection? No. Patient's initial sepsis screen is negative. Risk Assessment: Do you want to hurt yourself or someone else? Patient reports no desire to harm self or others. Onset of symptoms was December 24, 2019. 07:52 Method Of Arrival: Ambulatory hb 07:52 Acuity: SHAZIA 3 hb Historical: - Allergies: 07:59 Sulfa (Sulfonamide Antibiotics); ph - PMHx: 07:59 Anxiety; Depression; PTSD; Hypothyroidism; ph - PSHx: 07:59 None; ph - Immunization history:: Adult Immunizations up to date. - Social history:: Smoking status: Patient reports the use of cigarette tobacco products, smokes one-half pack cigarettes per day. Screenin:05 Abuse screen: Denies threats or abuse. Denies injuries from another. Nutritional hb screening: No deficits noted. Tuberculosis screening: No symptoms or risk factors identified. Fall Risk None identified. Assessment: 08:26 General: Appears in no apparent distress. uncomfortable, well groomed, Behavior is ph calm, cooperative, appropriate for age, Denies fever, feeling ill. Pain: Complains of pain in abdomen. Neuro: Level of Consciousness is awake, alert, obeys commands, Oriented to person, place, time, situation. Cardiovascular: Capillary refill < 3 seconds in bilateral fingers Patient's skin is warm and dry. Respiratory: Airway is patent Respiratory effort is even, unlabored, Respiratory pattern is regular, symmetrical. GI: Abdomen is round Bowel sounds present X 4 quads. Abdomen is tender to palpation X 4 quads. Reports nausea, vomiting. Derm: Skin is intact, Skin is pink, warm \T\ dry. Musculoskeletal: Circulation, motion, and sensation intact. Range of motion: intact in all extremities. 10:08 Reassessment: Patient appears in no apparent distress at this time. Patient and/or ph family updated on plan of care and expected duration. Pain level reassessed. Patient is alert, oriented x 3, equal unlabored respirations, skin warm/dry/pink. Pt resting comfortably, VSS. 12:02 Reassessment: Patient appears in no apparent distress at this time. Patient and/or ph family updated on plan of care and expected duration. Pain level reassessed. Patient is alert, oriented x 3, equal unlabored respirations, skin warm/dry/pink. Pt c/o nausea, IV medications administered, see Dr Justin TSANG at bedside to speak w/ pt. 13:22 Reassessment: Patient appears in no apparent distress at this time. Patient and/or ph family updated on plan of care and expected duration. Pain level reassessed. Patient is alert, oriented x 3, equal unlabored respirations, skin warm/dry/pink. Report called to second floor. Vital Signs: 07:52 BP 115 / 71; Pulse 118; Resp 16; Temp 97.2(TE); Pulse Ox 100% on R/A; Weight 81.65 kg; hb Height 5 ft. 6 in. (167.64 cm); Pain 8/10; 08:31 BP 109 / 86; Pulse 107; Resp 18; Pulse Ox 98% on R/A; ph 09:25 BP 108 / 84; Pulse 98; Resp 16; Pulse Ox 98% on R/A; ph 10:30 BP 112 / 89; Pulse 101; Resp 18; Pulse Ox 98% on R/A; ph 12:00 BP 107 / 89; Pulse 104; Resp 18; Pulse Ox 98% on R/A; ph 13:15 BP 117 / 84; Pulse 99; Resp 16; Temp 97.8; Pulse Ox 99% on R/A; ph 07:52 Body Mass Index 29.05 (81.65 kg, 167.64 cm) hb ED Course: 07:49 Patient arrived in ED. mr 07:50 Tino Sutton PA is PHCP. jmm 07:50 Bob Can MD is Attending Physician. jmm 07:52 Arm band placed on. hb 07:58 Kelli Hdz, RN is Primary Nurse. ph 08:04 Triage completed. hb 08:23 Patient has correct armband on for positive identification. Bed in low position. Call ph light in reach. Side rails up X 1. Pulse ox on. NIBP on. Door closed. Noise minimized. Warm blanket given. 08:23 Initial lab(s) drawn, by me, sent to lab. Missed attempt(s): 22 gauge in left ph antecubital area. Bleeding controlled, band aid applied, catheter tip intact. Missed attempt(s): 22 gauge in left antecubital area. Bleeding controlled, band aid applied, catheter tip intact. 08:48 Lab(s) recollected, by me, sent to lab. Inserted saline lock: 20 gauge in right dh3 antecubital area, using aseptic technique. Blood collected. 09:17 CT Abd/Pelvis - IV Contrast Only In Process Unspecified. EDMS 12:09 Sukumar Anderson MD is Hospitalizing Provider. [facility] 13:23 No provider procedures requiring assistance completed. Patient admitted, IV remains in ph place. Administered Medications: 08:20 Drug: Zofran (Ondansetron) 4 mg Route: IVP; Site: left antecubital; ph 10:48 Follow up: Response: No adverse reaction ph 08:29 Drug: morphine 4 mg Route: IVP; Site: left antecubital; ph 10:48 Follow up: Response: No adverse reaction; Pain is decreased ph 12:02 Drug: Zofran (Ondansetron) 4 mg Route: IVP; Site: right antecubital; ph 13:33 Follow up: Response: No adverse reaction; Nausea is decreased ph Outcome: 12:10 Decision to Hospitalize by Provider. [facility] 13:23 Admitted to Med/surg accompanied by tech, via wheelchair, room 217, with chart. ph 13:23 Condition: good 13:23 Instructed on the need for admit. 13:36 Patient left the ED. ph Signatures: Dispatcher [employer] EDMS Tino Sutton PA PA jmm Rivera, Elo Kelli Hdz, RN RN Elle Ervin RN RN Krystal Mike [employer] [facility]
--- NOTE | 2019-12-25 12:10 | EDPHYS ---
Physician Documentation [facility] Name: Priyanka Bravo Age: 39 yrs Sex: Female : 1980 Arrival Date: 12/25/2019 Time: 07:49 Bed 5 Private MD: ED Physician Bob Can HPI: 12/24 07:54 This 39 yrs old Female presents to ER via Ambulatory with complaints of [facility] Abdominal Pain. 07:54 The patient presents with abdominal pain. Onset: The symptoms/episode began/occurred jm acutely, last night. The symptoms do not radiate. Associated signs and symptoms: Pertinent positives: nausea and vomiting, Pertinent negatives: diarrhea, shortness of breath. The symptoms are described as achy, sharp. This is a 39 year old female with a history of anxiety, depression, PTSD, hypothyroidism that presents to the ED with complaints of epigastric abdominal pain after sneezing. Patient denies diarrhea. Denies history of bowel obstruction. . Historical: - Allergies: 07:59 Sulfa (Sulfonamide Antibiotics); ph - PMHx: 07:59 Anxiety; Depression; PTSD; Hypothyroidism; ph - PSHx: 07:59 None; ph - Immunization history:: Adult Immunizations up to date. - Social history:: Smoking status: Patient reports the use of cigarette tobacco products, smokes one-half pack cigarettes per day. ROS: 07:54 Constitutional: Negative for fever, chills, and weight loss, Cardiovascular: Negative jmm for chest pain, palpitations, and edema, Respiratory: Negative for shortness of breath, cough, wheezing, and pleuritic chest pain. 07:54 Abdomen/GI: Positive for abdominal pain, nausea and vomiting. 07:54 All other systems are negative. Exam: 07:54 Constitutional: This is a well developed, well nourished patient who is awake, alert, jmm and in no acute distress. Head/Face: atraumatic. Eyes: EOMI, no conjunctival erythema appreciated ENT: Moist Mucus Membranes Neck: Trachea midline, Supple Chest/axilla: Normal chest wall appearance and motion. Cardiovascular: Regular rate and rhythm. No edema appreciated Respiratory: Normal respirations, no respiratory distress appreciated 07:54 Back: Normal ROM Skin: General appearance color normal MS/ Extremity: Moves all extremities, no obvious deformities appreciated, no edema noted to the lower extremities Neuro: Awake and alert, normal gait Psych: Behavior is normal, Mood is normal, Patient is cooperative and pleasant 07:54 Abdomen/GI: Inspection: obese Bowel sounds: normal, Palpation: soft, in all quadrants, Hernia: noted in the epigastric area, tenderness, that is moderate. Vital Signs: 07:52 BP 115 / 71; Pulse 118; Resp 16; Temp 97.2(TE); Pulse Ox 100% on R/A; Weight 81.65 kg; hb Height 5 ft. 6 in. (167.64 cm); Pain 8/10; 08:31 BP 109 / 86; Pulse 107; Resp 18; Pulse Ox 98% on R/A; ph 09:25 BP 108 / 84; Pulse 98; Resp 16; Pulse Ox 98% on R/A; ph 10:30 BP 112 / 89; Pulse 101; Resp 18; Pulse Ox 98% on R/A; ph 12:00 BP 107 / 89; Pulse 104; Resp 18; Pulse Ox 98% on R/A; ph 13:15 BP 117 / 84; Pulse 99; Resp 16; Temp 97.8; Pulse Ox 99% on R/A; ph 07:52 Body Mass Index 29.05 (81.65 kg, 167.64 cm) hb MDM: 07:54 Patient medically screened. [facility] 12:08 Data reviewed: vital signs, nurses notes. Counseling: I had a detailed discussion with vanessa the patient and/or guardian regarding: the historical points, exam findings, and any diagnostic results supporting the discharge/admit diagnosis, lab results, radiology results, the need for further work-up and treatment in the hospital. ED course: I discussed the patient with Dr. Anderson whom accepted admission. . 12/24 07:55 Order name: Basic Metabolic Panel; Complete Time: 09:20 [facility] 12/24 07:55 Order name: CBC with Diff; Complete Time: 08:38 [facility] 12/24 07:55 Order name: Hepatic Function; Complete Time: 09:20 [facility] 12/24 07:55 Order name: Lipase; Complete Time: 09:20 [facility] 12/24 09:13 Order name: Urine Microscopic Only; Complete Time: 09:48 dh3 12/24 09:14 Order name: Urine Dipstick--Ancillary (enter results); Complete Time: 09:22 eb 12/24 09:14 Order name: Urine --Ancillary (enter results); Complete Time: 09:22 12/24 09:17 Order name: CREATININE WHOLE BLOOD; Complete Time: 09:20 [facility] 12/24 12:18 Order name: Basic Metabolic Panel [facility] 12/24 12:19 Order name: CBC with Automated Diff EDCT 12/24 12:19 Order name: Lipase [facility] 12/24 07:55 Order name: IV Saline Lock; Complete Time: 09:13 [facility] 12/24 07:55 Order name: Labs collected and sent; Complete Time: 08:30 [facility] 12/24 07:55 Order name: Urine Dipstick-Ancillary (obtain specimen); Complete Time: 09:13 [facility] 12/24 07:55 Order name: Urine Test (obtain specimen); Complete Time: 09:13 [facility] 12/24 08:01 Order name: CT Abd/Pelvis - IV Contrast Only; Complete Time: 09:46 [facility] 12/24 08:37 Order name: Labs - recollect needed: recollect chemistries; Complete Time: 08:53 12/24 10:40 Order name: NPO; Complete Time: 10:47 [facility] 12/24 12:18 Order name: NPO [facility] 12/24 12:19 Order name: Liver (Hepatic) Function EDMS Administered Medications: 08:20 Drug: Zofran (Ondansetron) 4 mg Route: IVP; Site: left antecubital; ph 10:48 Follow up: Response: No adverse reaction ph 08:29 Drug: morphine 4 mg Route: IVP; Site: left antecubital; ph 10:48 Follow up: Response: No adverse reaction; Pain is decreased ph 12:02 Drug: Zofran (Ondansetron) 4 mg Route: IVP; Site: right antecubital; ph 13:33 Follow up: Response: No adverse reaction; Nausea is decreased ph Disposition: 13:39 Co-signature as Attending Physician, Bob Can MD. rn Disposition: 12/25/19 12:10 Hospitalization ordered by Sukumar Anderson for Observation. Preliminary diagnosis are Intractable Abdominal Pain, Ventral Abdominal Hernia, UTI. - Bed requested for Telemetry/MedSurg (observation). - Status is Observation. ph - Condition is Stable. - Problem is new. - Symptoms are unchanged. Signatures: Dispatcher [employer] EDSharla Wong RN RN dw Tino Sutton PA PA [facility] Bob Can MD MD rn Hall, Patricia, RN RN Elle Ervin, PRIYANKA RN Ivy Ray Corrections: (The following items were deleted from the chart) 12:58 12:10 Hospitalization Ordered by Sukumar Anderson MD for Observation. Preliminary dw diagnosis is Intractable Abdominal Pain; Ventral Abdominal Hernia; UTI. Bed requested for Telemetry/MedSurg (observation). Status is Observation. Condition is Stable. Problem is new. Symptoms are unchanged. [facility] 13:36 12:58 12/25/2019 12:10 Hospitalization Ordered by Sukumar Anderson MD for Observation. Preliminary diagnosis is Intractable Abdominal Pain; Ventral Abdominal Hernia; UTI. Bed requested for Telemetry/MedSurg (observation). Status is Observation. Condition is Stable. Problem is new. Symptoms are unchanged. dw
[2019-12-25 13:54] VITALS: BP 117/84; TEMP 97.8; O2SAT 99
== END ==
LOC: ER 07:46
DX: K43.9 Ventral hernia without obstruction or gangrene (principal); N39.0 Urinary tract infection, site not specified; Z88.2 Allergy status to sulfonamides; F17.210 Nicotine dependence, cigarettes, uncomplicated
CPT/HCPCS: 36415; 74177; 80048; 80076; 81003; 81015; 81025; 82565; 83690; 85025; 96374; 96375; 99285; J1100; J2250; J2405; J2704; J2710; J3010; Q9967

== ENCOUNTER 2020-11-29 19:07 | Emergency (ER) | payer SELFPAY ==
--- NOTE | 2020-11-29 21:14 | RAD REPORT ---
EXAM DESCRIPTION: CT - Thorax Wo Con - 11/29/2020 9:06 pm CLINICAL HISTORY: PAIN COMPARISON: Head Brain Wo Cont dated 11/29/2020 TECHNIQUE: Axial 5 mm thick images of the chest were obtained without IV contrast. All CT scans are performed using dose optimization technique as appropriate and may include automated exposure control or mA/KV adjustment according to patient size. FINDINGS: No mass or infiltrate in the lung parenchyma. No pleural thickening or pleural effusion. N o pneumothorax. No abnormal mediastinal or hilar masses or lymphadenopathy seen. No gross aortic or pulmonary artery finding suspected. Assessment is limited in the absence of IV contrast. No chest wall mass or abnormal axillary lymphadenopathy. IMPRESSION: Negative non-contrast CT chest examination.
--- NOTE | 2020-11-29 21:15 | RAD REPORT ---
EXAM DESCRIPTION: CT - Head Brain Wo Cont - 11/29/2020 9:06 pm CLINICAL HISTORY: SYNCOPE, fall, head injury COMPARISON: No comparisons TECHNIQUE: Axial 5 mm thick images of the head were obtained without IV contrast. All CT scans are performed using dose optimization technique as appropriate and may include automated exposure control or mA/KV adjustment according to patient size. FINDINGS: No intracranial hemorrhage, mass, edema or shift of mid-line structures. No acute infarcti on changes seen. No abnormal extra-axial fluid collections. Ventricles are normal. Mastoid air cells and visualized portions of the paranasal sinuses are clear. No acute bony findings. IMPRESSION: Negative non-contrast CT head examination.
--- NOTE | 2020-11-29 21:40 | ER ---
Nurse's Notes [facility] Name: Priyanka Bravo Age: 40 yrs Sex: Female : 1980 Arrival Date: 11/29/2020 Time: 19:11 Bed 6 Private MD: Diagnosis: Contusion of front wall of thorax;Contusion of unspecified knee Presentation: 11/29 19:15 Chief complaint: Patient states: slipped in the shower and fell forward, thinks she hit iw trash can or side of tub , has saenz and bruising on right side, happened last night, had a lot of pain this morning and headache, no ETOH use , states she slipped on the soap and has bad knees , has pain to right shoulder, right ribs, right knee. Care prior to arrival: None. 19:15 Acuity: SHAZIA 4 iw 19:15 Method Of Arrival: Ambulatory iw 19:17 Coronavirus screen: At this time, the client does not indicate any symptoms associated iw with coronavirus-19. Ebola Screen: Patient negative for fever greater than or equal to 101.5 degrees Fahrenheit, and additional compatible Ebola Virus Disease symptoms Patient denies exposure to infectious person. Patient denies travel to an Ebola-affected area in the 21 days before illness onset. No symptoms or risks identified at this time. Initial Sepsis Screen: Does the patient meet any 2 criteria? No. Patient's initial sepsis screen is negative. Does the patient have a suspected source of infection? No. Patient's initial sepsis screen is negative. Risk Assessment: Do you want to hurt yourself or someone else? Patient reports no desire to harm self or others. Onset of symptoms was November 28, 2020. Historical: - Allergies: 19:19 Sulfa (Sulfonamide Antibiotics); iw - PMHx: 19:19 Anxiety; Hypothyroidism; PTSD; Depression; iw - PSHx: 19:19 Hernia repair; mesh; iw - Immunization history:: Adult Immunizations not up to date. - Social history:: Smoking status: Patient reports the use of cigarette tobacco products, smokes one-half pack cigarettes per day. Screenin:41 Abuse screen: Denies threats or abuse. Nutritional screening: No deficits noted. ea Tuberculosis screening: No symptoms or risk factors identified. Fall Risk Fall in past 12 months (25 points). Assessment: 21:10 General: Appears uncomfortable, Behavior is calm, cooperative, appropriate for age. ea Pain:. Neuro: Level of Consciousness is awake, alert, obeys commands, Oriented to person, place, time. Cardiovascular: Patient's skin is warm and dry. Respiratory: Airway is patent Respiratory effort is even, unlabored, Respiratory pattern is regular, symmetrical. Derm: Skin is pink, warm \T\ dry. Vital Signs: 19:17 BP 118 / 74; Pulse 98; Resp 16; Temp 97.4; Pulse Ox 100% on R/A; Weight 86.18 kg; iw Height 5 ft. 6 in. (167.64 cm); 21:51 BP 113 / 84; Pulse 74; Resp 18; Pulse Ox 100% ; ak2 19:17 Body Mass Index 30.67 (86.18 kg, 167.64 cm) ED Course: 19:11 Patient arrived in ED. es 19:17 Triage completed. iw 19:19 Arm band placed on. 20:28 Terrance Medeiros MD is Attending Physician. tw4 20:41 Miri Wynn, RN is Primary Nurse. ea 20:41 Patient has correct armband on for positive identification. Bed in low position. Call ea light in reach. 21:06 CT Head Brain wo Cont In Process Unspecified. EDMS 21:06 CT Chest Wo Con In Process Unspecified. EDMS 21:40 No provider procedures requiring assistance completed. ea 21:52 Patient did not have IV access during this emergency room visit. ak2 Administered Medications: No medications were administered Outcome: 21:40 Discharge ordered by . tw4 21:51 Discharged to home ambulatory. ak2 21:51 Condition: stable 21:51 Discharge instructions given to patient, Instructed on discharge instructions, follow up and referral plans. medication usage, Demonstrated understanding of instructions, follow-up care, medications, Prescriptions given X 1. 21:52 Patient left the ED. ak2 Signatures: Dispatcher [employer] Antonia Sandoval Irene, RN Miri Peter, RN Terrance Zamudio ea, MD MD [facility] Franko Gonsalves ak2
--- NOTE | 2020-11-29 21:40 | EDPHYS ---
Physician Documentation [facility] Name: Priyanka Bravo Age: 40 yrs Sex: Female : 1980 Arrival Date: 11/29/2020 Time: 19:11 Bed 6 Private MD: ED Physician Terrance Medeiros HPI: 11/29 23:43 This 40 yrs old Female presents to ER via Ambulatory with complaints of Fall tw4 Injury. 23:43 Details of fall: The patient fell from an upright position, while standing. Onset: The tw4 symptoms/episode began/occurred yesterday. Associated injuries: The patient sustained injury to the chest. Severity of symptoms: At their worst the symptoms were moderate, in the emergency department the symptoms are unchanged. The patient has not experienced similar symptoms in the past. Historical: - Allergies: 19:19 Sulfa (Sulfonamide Antibiotics); iw - PMHx: 19:19 Anxiety; Hypothyroidism; PTSD; Depression; iw - PSHx: 19:19 Hernia repair; mesh; iw - Immunization history:: Adult Immunizations not up to date. - Social history:: Smoking status: Patient reports the use of cigarette tobacco products, smokes one-half pack cigarettes per day. ROS: 23:43 Constitutional: Negative for fever, chills, and weight loss, Eyes: Negative for injury, tw4 pain, redness, and discharge. 23:43 Respiratory: Negative for shortness of breath, cough, wheezing, and pleuritic chest pain, Abdomen/GI: Negative for abdominal pain, nausea, vomiting, diarrhea, and constipation, Back: Negative for injury and pain, MS/Extremity: Negative for injury and deformity, Skin: Negative for injury, rash, and discoloration, Neuro: Negative for headache, weakness, numbness, tingling, and seizure. 23:43 Cardiovascular: Positive for chest pain, Negative for edema, orthopnea, palpitations. Exam: 23:43 Constitutional: This is a well developed, well nourished patient who is awake, alert, tw4 and in no acute distress. Head/Face: Normocephalic, atraumatic. Cardiovascular: Regular rate and rhythm with a normal S1 and S2. No gallops, murmurs, or rubs. Normal PMI, no JVD. No pulse deficits. Respiratory: Lungs have equal breath sounds bilaterally, clear to auscultation and percussion. No rales, rhonchi or wheezes noted. No increased work of breathing, no retractions or nasal flaring. Abdomen/GI: Soft, non-tender, with normal bowel sounds. No distension or tympany. No guarding or rebound. No evidence of tenderness throughout. Back: No spinal tenderness. No costovertebral tenderness. Full range of motion. Skin: Warm, dry with normal turgor. Normal color with no rashes, no lesions, and no evidence of cellulitis. MS/ Extremity: Pulses equal, no cyanosis. Neurovascular intact. Full, normal range of motion. Neuro: Awake and alert, GCS 15, oriented to person, place, time, and situation. Cranial nerves II-XII grossly intact. Motor strength 5/5 in all extremities. Sensory grossly intact. Cerebellar exam normal. Normal gait. 23:43 Chest/axilla: Inspection: ecchymosis, Palpation: tenderness, that is moderate, of the right lateral anterior chest, that totally reproduces the patient's complaints. Vital Signs: 19:17 BP 118 / 74; Pulse 98; Resp 16; Temp 97.4; Pulse Ox 100% on R/A; Weight 86.18 kg; iw Height 5 ft. 6 in. (167.64 cm); 21:51 BP 113 / 84; Pulse 74; Resp 18; Pulse Ox 100% ; ak2 19:17 Body Mass Index 30.67 (86.18 kg, 167.64 cm) iw MDM: 20:41 Patient medically screened. tw4 23:46 Differential diagnosis: abrasion, contusion. Data reviewed: vital signs, nurses notes. tw4 Data reviewed: radiologic studies, CT scan. Data interpreted: Pulse oximetry: Interpretation: normal. Test interpretation: by ED physician or midlevel provider:. Counseling: I had a detailed discussion with the patient and/or guardian regarding: the historical points, exam findings, and any diagnostic results supporting the discharge/admit diagnosis. 11/29 20:47 Order name: CT Head Brain wo Cont; Complete Time: 21:28 tw4 11/29 20:47 Order name: CT Chest Wo Con; Complete Time: 21:27 tw4 Administered Medications: No medications were administered Disposition: 11/29/20 21:40 Discharged to Home. Impression: Contusion of front wall of thorax, Contusion of unspecified knee. - Condition is Stable. - Discharge Instructions: Contusion, Chest Contusion, Adult. - Prescriptions for Ibuprofen 800 mg Oral Tablet - take 1 tablet by ORAL route every 12 hours As needed take with food; 20 tablet. - Medication Reconciliation Form, Thank You Letter, Antibiotic Education, Prescription Opioid Use, Work release form form. - Follow up: Private Physician; When: Upon discharge from the Emergency Department; Reason: Recheck today's complaints, Continuance of care, Re-evaluation by your physician. - Problem is new. - Symptoms have improved. Signatures: Dispatcher [employer] EDSujey Barragan RN RN iw Terrance Medeiros MD MD tw4 Franko Gonsalves ak2 Corrections: (The following items were deleted from the chart) 21:52 21:40 11/29/2020 21:40 Discharged to Home. Impression: Contusion of front wall of ak2 thorax; Contusion of unspecified knee. Condition is Stable. Forms are Medication Reconciliation Form, Thank You Letter, Antibiotic Education, Prescription Opioid Use. Follow up: Private Physician; When: Upon discharge from the Emergency Department; Reason: Recheck today's complaints, Continuance of care, Re-evaluation by your physician. Problem is new. Symptoms have improved. tw4
[2020-11-29 22:17] VITALS: TEMP 97.4; O2SAT 100
[2020-11-29 22:19] VITALS: BP 113/84
== END 2020-11-29 21:52 | disposition home or self-care (01) ==
LOC: ER 19:07
DX: S20.211A Contusion of right front wall of thorax, initial encounter (principal); S80.01XA Contusion of right knee, initial encounter; W19.XXXA Unspecified fall, initial encounter; Y93.89 Activity, other specified; F17.210 Nicotine dependence, cigarettes, uncomplicated; Z88.2 Allergy status to sulfonamides
CPT/HCPCS: 70450; 71250; 99283